=== PATIENT | male | born 1990 | race Two or more races ===

== ENCOUNTER 2022-04-28 07:51 | Inpatient (IN) | payer MEDICAID, OTHER ==
[~2022-04-28] VITALS: Ht 182.9 cm; Wt 80.8 kg
[2022-04-28] MEDS ORDERED: SODIUM CHLORIDE 0.9% 1,000 ML IV ONE (08:00)
[2022-04-28] MEDS ORDERED: LORazepam 2MG/ML-1ML VIAL IV ONE ×2 (08:15→09:00)
[2022-04-28 08:35] LABS: Basophils # (auto) 0.1 10 ^3/uL (0-0.2); Basophils % (auto) 0.4 % (0.0-2.0); Eosinophils # (auto) 0.1 10 ^3/uL (0-0.8); Eosinophils % (auto) 0.6 % (0.0-7.0); Hematocrit 47.3 % (41.0-53.0); Hemoglobin 15.9 g/dL (13.5-17.5); Lymphocytes # (auto) 1.4 10 ^3/uL (0.4-5.4); Lymphocytes % (auto) 10.4 % (10.0-50.0); Mean Corpuscular Hemoglobin 29.1 pg (28.0-32.0); Mean Corpuscular Hgb Conc. 33.6 g/dL (32.0-36.0); Mean Corpuscular Volume 86.6 fL (80.0-100.0); Monocytes # (auto) 0.5 10 ^3/uL (0-1.3); Monocytes % (auto) 3.7 % (0.0-12.0); Neutrophils # (auto) 11.6 10 ^3/uL (1.6-8.6); Neutrophils % (auto) 84.9 % (37.0-80.0); Nucleated Red Blood Cells % 0.2 %; Red Blood Cells 5.47 10^6/uL (4.5-5.90); Red Cell Distribution Width 13.5 % (11.8-14.3); White Blood Cell 13.6 10^3/uL (4.4-10.8)
[2022-04-28 09:06] LABS: Albumin 4.1 g/dL (3.4-5.0); Calcium 9.5 mg/dL (8.5-10.1); Potassium 3.3 mmol/L (3.5-5.1)
[2022-04-28 09:09] LABS: BUN/Creatinine Ratio 13.2; Total Protein 7.7 g/dL (6.4-8.2)
[2022-04-28] MEDS ORDERED: IOHEXOL 350 MG/ML 100ML IJ ONE (10:55)
[2022-04-28 11:11] LABS: Urine Bacteria NONE SEEN /hpf (None Seen); Urine Blood TRACE /uL (Negative); Urine Specific Gravity 1.014 (1.001-1.035); Urine WBC 6 /hpf (0 - 3)
[2022-04-28] MEDS ORDERED: ETOMIDATE (2MG/ML) 20ML VIAL IV ONE (11:45)
[2022-04-28] MEDS ORDERED: MORPHINE SULFATE INJ 2 MG/ml SYRG IV ONE (12:00)
[2022-04-28] MEDS ORDERED: ONDANSETRON HCL 4 MG/2 ML VIAL IV PRN (13:15)
[2022-04-28] MEDS ORDERED: MORPHINE SULFATE INJ 2 MG/ml SYRG IV PRN (13:15)
[2022-04-28] MEDS ORDERED: DOCUSATE SOD 100 MG CAP PO PRN (13:15)
[2022-04-28] MEDS ORDERED: MORPHINE SULFATE 4 MG/ML SYR/VIAL IV ONE (13:45)
[2022-04-28] MEDS: SODIUM CHLORIDE 0.9% 1,000 ML IV SCH ×2 (13:56→21:53)
[2022-04-28] MEDS: LORazepam 2MG/ML-1ML VIAL IV PRN (17:33)
[2022-04-28] MEDS ORDERED: NICOTINE 21MG/24 HR TOPICAL PATCH TD ONE (21:15)
[2022-04-28 23:30] VITALS: BP 155/97
[2022-04-29 05:00] VITALS: BP 115/73
[2022-04-29 05:27] LABS: Basophils # (auto) 0 10 ^3/uL (0-0.2); Basophils % (auto) 0.3 % (0.0-2.0); Eosinophils # (auto) 0.1 10 ^3/uL (0-0.8); Eosinophils % (auto) 0.5 % (0.0-7.0); Hematocrit 39.6 % (41.0-53.0); Hemoglobin 13.7 g/dL (13.5-17.5); Lymphocytes # (auto) 1.6 10 ^3/uL (0.4-5.4); Lymphocytes % (auto) 15.4 % (10.0-50.0); Mean Corpuscular Hemoglobin 29.5 pg (28.0-32.0); Mean Corpuscular Hgb Conc. 34.6 g/dL (32.0-36.0); Mean Corpuscular Volume 85.5 fL (80.0-100.0); Monocytes # (auto) 0.8 10 ^3/uL (0-1.3); Monocytes % (auto) 7.6 % (0.0-12.0); Neutrophils # (auto) 7.9 10 ^3/uL (1.6-8.6); Neutrophils % (auto) 76.2 % (37.0-80.0); Red Blood Cells 4.63 10^6/uL (4.5-5.90); Red Cell Distribution Width 13.4 % (11.8-14.3); White Blood Cell 10.4 10^3/uL (4.4-10.8)
[2022-04-29 05:40] LABS: Albumin 3.3 g/dL (3.4-5.0); Calcium 8.4 mg/dL (8.5-10.1); Potassium 3.1 mmol/L (3.5-5.1)
[2022-04-29 05:45] LABS: Bilirubin, Total 0.6 mg/dL (0.2-1.0); Total Protein 6.4 g/dL (6.4-8.2)
[2022-04-29] MEDS: SODIUM CHLORIDE 0.9% 1,000 ML IV SCH (06:13)
[2022-04-29 09:20] VITALS: BP 134/77
[2022-04-29] MEDS: ENOXAPARIN SOD 40 MG/0.4 ML SYRINGE SC SCH (09:47)
[2022-04-29] MEDS ORDERED: PANTOPRAZOLE 40 MG/10 ML VIAL INJ IV SCH (10:00)
[2022-04-29 13:00] VITALS: BP 146/91
[2022-04-29] MEDS: NICOTINE 21MG/24 HR TOPICAL PATCH TD SCH (14:50)
[2022-04-29] MEDS: LORazepam 2MG/ML-1ML VIAL IV PRN (15:32)
[2022-04-29 17:00] VITALS: BP 146/94
[2022-04-29 22:00] VITALS: BP 112/71
[2022-04-29] MEDS ORDERED: MELATONIN 5 MG TAB PO ONE (22:15)
[2022-04-29] MEDS: levETIRAcetam 500 MG TAB PO SCH (22:19)
[2022-04-30 05:00] VITALS: BP 138/68
[2022-04-30 09:07] VITALS: BP 132/81
[2022-04-30] MEDS ORDERED: LEVE500T32 PO (09:18)
[2022-04-30] MEDS: levETIRAcetam 500 MG TAB PO SCH (09:41)
[2022-04-30] MEDS: NICOTINE 21MG/24 HR TOPICAL PATCH TD SCH (09:42)
[2022-04-30] MEDS: ENOXAPARIN SOD 40 MG/0.4 ML SYRINGE SC SCH (09:42)
[2022-04-30 10:33] VITALS: BP 132/81
== END 2022-04-30 11:08 | disposition home or self-care (01) | DRG 53 ==
LOC: EDBD 07:51 → ER 07:51 → OVERFLOW 13:08 → CENTRAL 21:30
PROVIDERS: ADMIT Nurse Practitioner Family; ATTEND Student in an Organized Health Care Education/Training Program
PROC: 0RSJXZZ Reposition Right Shoulder Joint, External Approach (ICD-10-PCS; principal; 2022-04-28)
DX: G40.201 Localization-related (focal) (partial) symptomatic epilepsy and epileptic syndromes with complex partial seizures, not intractable, with status epilepticus (principal); G40.401 Other generalized epilepsy and epileptic syndromes, not intractable, with status epilepticus; S43.014A Anterior dislocation of right humerus, initial encounter; E87.6 Hypokalemia; D72.829 Elevated white blood cell count, unspecified; F41.1 Generalized anxiety disorder; X58.XXXA Exposure to other specified factors, initial encounter; Z20.822 Contact with and (suspected) exposure to COVID-19; M19.90 Unspecified osteoarthritis, unspecified site; Z79.899 Other long term (current) drug therapy; Z82.49 Family history of ischemic heart disease and other diseases of the circulatory system; Z83.3 Family history of diabetes mellitus; Y93.89 Activity, other specified; Y92.89 Other specified places as the place of occurrence of the external cause; Y99.8 Other external cause status
CPT/HCPCS: 23650; 36415; 70450; 73020; 73030; 73200; 80053; 81001; 85025; 87426; 93005; 96361; 96374; 96375; 96376; 97163; 99152; C9113; G0378; J2405; J7060

== ENCOUNTER 2022-06-23 18:01 | Inpatient (IN) | payer MEDICAID ==
[~2022-06-23] VITALS: Ht 180.3 cm; Wt 81.0 kg
[~2022-06-23 18:01] MED LIST: LEVE500T32 PO
[2022-06-23] MEDS ORDERED: LORazepam 2MG/ML-1ML VIAL ONE ×2 (18:21→22:03)
[2022-06-23] MEDS ORDERED: SODIUM CHLORIDE 0.9% 1,000 ML IV ONE ×3 (18:30→22:00)
[2022-06-23] MEDS ORDERED: LORazepam 2MG/ML-1ML VIAL IV ONE ×2 (18:30→22:15)
[2022-06-23 19:27] LABS: Mean Corpuscular Hemoglobin 29.2 pg (28.0-32.0); Mean Corpuscular Hgb Conc. 30.2 g/dL (32.0-36.0); Mean Corpuscular Volume 96.8 fL (80.0-100.0); Red Blood Cells 5.81 10^6/uL (4.5-5.90); Red Cell Distribution Width 12.7 % (11.8-14.3)
[2022-06-23 19:37] LABS: Hematocrit 56.2 % (41.0-53.0)
[2022-06-23 19:39] LABS: White Blood Cell 36.9 10^3/uL (4.4-10.8)
[2022-06-23 19:40] LABS: Basophils % (manual) 0 (0.0-2.0); Blast Cells 0; Eosinophils % (manual) 0 (0-7); Metamyelocytes % 0; Myelocytes % 0; Promyelocytes % 0; Reactive Lymphocytes 0
[2022-06-23 19:50] LABS: Albumin 4.4 g/dL (3.4-5.0); Calcium 11.1 mg/dL (8.5-10.1); Potassium 4.5 mmol/L (3.5-5.1)
[2022-06-23 19:53] LABS: BUN/Creatinine Ratio 6.3
[2022-06-23 19:55] LABS: Bilirubin, Total 0.3 mg/dL (0.2-1.0); Total Protein 8.3 g/dL (6.4-8.2)
[2022-06-23 19:57] LABS: Lactic Acid w/Reflex 27.2 mmol/L (0.4-2.0)
[2022-06-23] MEDS ORDERED: PIPERACILLIN-TAZOB 3.375GM 100 ML IV ONE (20:00)
[2022-06-23 20:11] LABS: Magnesium 4.6 mg/dL (1.6-2.6)
[2022-06-23 20:24] LABS: Band Neutrophils % (manual) 12; Lymphocytes % (manual) 38 (10.0-50.0); Monocytes % (manual) 5 (0-12)
[2022-06-23] MEDS ORDERED: SODIUM BICARBONATE 8.4 % INJ 50ML VIAL IV ONE ×2 (21:15→21:45)
[2022-06-23] MEDS ORDERED: InsuLIN R (HUMAN) 100 UNITS in SODIUM CHL 0.9% 99 ML IV SCH (21:15)
[2022-06-23] MEDS ORDERED: NALOXONE HCL 0.4 MG/ML VIAL ONE ×2 (21:37→21:49)
[2022-06-23] MEDS ORDERED: SODIUM BICARBONATE 8.4% INJ 50ML SYRINGE ONE (21:40)
[2022-06-23] MEDS ORDERED: InsuLIN REG 1unit/0.01ml Soln (100units/ml) ONE ×2 (21:41→21:52)
[2022-06-23] MEDS ORDERED: ETOMIDATE (2MG/ML) 20ML VIAL IV ONE ×2 (21:44→22:00)
[2022-06-23] MEDS ORDERED: MIDAZOLAM DRIP 50 mg/50mL 50 ML IV ONE (21:44)
[2022-06-23] MEDS ORDERED: SUCCINYLCHOLINE CHLORIDE 20 MG/ML 10ML VIAL IV ONE ×2 (21:45→22:15)
[2022-06-23] MEDS ORDERED: InsuLIN REG 1unit/0.01ml Soln (100units/ml) IV ONE (21:45)
[2022-06-23] MEDS ORDERED: NALOXONE HCL 0.4 MG/ML VIAL IV ONE (22:00)
[2022-06-23 22:10] VITALS: BP 165/97
[2022-06-23] MEDS: MIDAZOLAM DRIP 50 mg/50mL 50 ML IV SCH (22:15)
[2022-06-23] MEDS: ACCU-CHEK COMFORT CURVE STRIP VI SCH (22:30)
[2022-06-23] MEDS: PROPOFOL 100 ML IV SCH (22:44)
[2022-06-23 22:56] LABS: INR 1.24 (0.9-1.15)
[2022-06-23] MEDS: SODIUM CHLORIDE 0.9% 1,000 ML IV SCH (23:15)
[2022-06-23 23:44] LABS: Hematocrit 49.5 % (41.0-53.0); Hemoglobin 16.7 g/dL (13.5-17.5); Mean Corpuscular Hemoglobin 29.3 pg (28.0-32.0); Mean Corpuscular Hgb Conc. 33.8 g/dL (32.0-36.0); Mean Corpuscular Volume 86.5 fL (80.0-100.0); Red Blood Cells 5.72 10^6/uL (4.5-5.90); Red Cell Distribution Width 12.2 % (11.8-14.3); White Blood Cell 27.4 10^3/uL (4.4-10.8)
[2022-06-23 23:45] LABS: Partial Thromboplastin Time 80.7 sec (24.6-33.4)
[2022-06-23 23:47] LABS: Lactic Acid w/Reflex 4.6 mmol/L (0.4-2.0)
[2022-06-23 23:50] VITALS: BP 128/88
[2022-06-23 23:52] LABS: Amphetamine Screen, Urine NEGATIVE (NEGATIVE); Barbiturate Scree,Urine NEGATIVE (NEGATIVE); Benzodiazephine Screen, Urine POSITIVE (NEGATIVE); Cannabinoid Screen, Urine POSITIVE (NEGATIVE); Cocaine Screen, Urine NEGATIVE (NEGATIVE); Opiate Scree,Urine NEGATIVE (NEGATIVE); Phencyclidine Screen, Urine NEGATIVE (NEGATIVE)
[2022-06-24] VITALS (12 sets, daily range): BP systolic 104–130; BP diastolic 61–88
[2022-06-24 00:01] LABS: Alcohol, Urine < 3.0 mg/dL (0-10)
[2022-06-24 00:07] LABS: Urine Bacteria NONE SEEN /hpf (None Seen); Urine Blood 1+ /uL (Negative); Urine Specific Gravity 1.008 (1.001-1.035); Urine WBC 1 /hpf (0 - 3)
[2022-06-24 00:12] LABS: Basophils % (manual) 0 (0.0-2.0); Blast Cells 0; Eosinophils % (manual) 0 (0-7); Metamyelocytes % 0; Myelocytes % 0; Promyelocytes % 0; Reactive Lymphocytes 0
[2022-06-24] MEDS ORDERED: NOREPINEPHRINE 8 MG/250ML KIT 250 ML IV ONE (00:18)
[2022-06-24 00:22] LABS: Albumin 3.6 g/dL (3.4-5.0); BUN/Creatinine Ratio 9.1; Calcium 8.1 mg/dL (8.5-10.1); Magnesium 3.4 mg/dL (1.6-2.6); Potassium 3.8 mmol/L (3.5-5.1)
[2022-06-24 00:24] LABS: Bilirubin, Total 0.4 mg/dL (0.2-1.0); Phosphorus 2.9 mg/dL (2.5-4.90); Total Protein 6.7 g/dL (6.4-8.2)
[2022-06-24] MEDS ORDERED: DEXTROSE (50%) 50ML SYRG IV ONE (00:45)
[2022-06-24] MEDS ORDERED: NITROGLYCERIN 0.4 MG SL TAB SL PRN (00:45)
[2022-06-24] MEDS ORDERED: ACETAMINOPHEN 650 MG RECT SUPP PR PRN (00:45)
[2022-06-24] MEDS: SODIUM CHLORIDE 0.9% 1,000 ML IV SCH (00:45)
[2022-06-24] MEDS ORDERED: MORPHINE SULFATE INJ 2 MG/ml SYRG IV PRN (00:45)
[2022-06-24 01:16] LABS: Monocytes % (manual) 6 (0-12)
[2022-06-24 01:17] LABS: Band Neutrophils % (manual) 13; Lymphocytes % (manual) 7 (10.0-50.0)
[2022-06-24] MEDS: ACCU-CHEK COMFORT CURVE STRIP VI SCH ×6 (01:40→18:06)
[2022-06-24] MEDS ORDERED: DEXTROSE (50%) 50ML SYRG IV PRN (01:45)
[2022-06-24] MEDS: InsuLIN REG 1unit/0.01ml Soln (100units/ml) SC SCH ×3 (06:00→18:00)
[2022-06-24 06:04] LABS: Basophils # (auto) 0.1 10 ^3/uL (0-0.2); Basophils % (auto) 0.3 % (0.0-2.0); Eosinophils # (auto) 0 10 ^3/uL (0-0.8); Hematocrit 40.9 % (41.0-53.0); Hemoglobin 14.3 g/dL (13.5-17.5); Lymphocytes # (auto) 0.7 10 ^3/uL (0.4-5.4); Lymphocytes % (auto) 3.4 % (10.0-50.0); Mean Corpuscular Hemoglobin 29.4 pg (28.0-32.0); Mean Corpuscular Hgb Conc. 35.1 g/dL (32.0-36.0); Mean Corpuscular Volume 83.9 fL (80.0-100.0); Monocytes # (auto) 1.2 10 ^3/uL (0-1.3); Monocytes % (auto) 6.2 % (0.0-12.0); Neutrophils # (auto) 17.7 10 ^3/uL (1.6-8.6); Neutrophils % (auto) 90.1 % (37.0-80.0); Red Blood Cells 4.87 10^6/uL (4.5-5.90); Red Cell Distribution Width 12.2 % (11.8-14.3); White Blood Cell 19.6 10^3/uL (4.4-10.8)
[2022-06-24 06:13] LABS: Albumin 3.2 g/dL (3.4-5.0); BUN/Creatinine Ratio 11.1; Calcium 7.9 mg/dL (8.5-10.1); Potassium 3.5 mmol/L (3.5-5.1)
[2022-06-24 06:16] LABS: Bilirubin, Total 0.5 mg/dL (0.2-1.0); Total Protein 6.2 g/dL (6.4-8.2)
[2022-06-24] MEDS: MIDAZOLAM DRIP 50 mg/50mL 50 ML IV SCH ×5 (07:31→22:08)
[2022-06-24 08:21] LABS: Magnesium 2.8 mg/dL (1.6-2.6); Phosphorus 2.9 mg/dL (2.5-4.90)
[2022-06-24] MEDS: PIPERACILLIN-TAZOB 3.375GM 100 ML IV SCH ×3 (09:40→22:08)
[2022-06-24] MEDS: ENOXAPARIN SOD 40 MG/0.4 ML SYRINGE SC SCH (10:38)
[2022-06-24] MEDS: PANTOPRAZOLE 40 MG/10 ML VIAL INJ IV SCH (10:38)
[2022-06-24] MEDS ORDERED: LORazepam 2MG/ML-1ML VIAL IV PRN (11:00)
[2022-06-24] MEDS: NOREPINEPHRINE 8 MG/250ML KIT 250 ML IV SCH (11:14)
[2022-06-24] MEDS: PROPOFOL 100 ML IV SCH ×2 (15:08→22:07)
[2022-06-25] VITALS (40 sets, daily range): BP systolic 110–145; BP diastolic 69–102
[2022-06-25] MEDS: ACCU-CHEK COMFORT CURVE STRIP VI SCH ×4 (00:15→18:00)
[2022-06-25] MEDS: NOREPINEPHRINE 8 MG/250ML KIT 250 ML IV SCH (00:30)
[2022-06-25] MEDS: PROPOFOL 100 ML IV SCH ×5 (02:20→21:20)
[2022-06-25] MEDS: MIDAZOLAM DRIP 50 mg/50mL 50 ML IV SCH ×6 (02:31→22:03)
[2022-06-25] MEDS: PIPERACILLIN-TAZOB 3.375GM 100 ML IV SCH ×3 (05:56→22:42)
[2022-06-25] MEDS: InsuLIN REG 1unit/0.01ml Soln (100units/ml) SC SCH ×4 (06:00→18:00)
[2022-06-25 07:56] LABS: Basophils # (auto) 0 10 ^3/uL (0-0.2); Basophils % (auto) 0.3 % (0.0-2.0); Eosinophils # (auto) 0.1 10 ^3/uL (0-0.8); Eosinophils % (auto) 0.5 % (0.0-7.0); Hematocrit 39.3 % (41.0-53.0); Hemoglobin 13.6 g/dL (13.5-17.5); Lymphocytes # (auto) 1.5 10 ^3/uL (0.4-5.4); Lymphocytes % (auto) 10.6 % (10.0-50.0); Mean Corpuscular Hemoglobin 29.1 pg (28.0-32.0); Mean Corpuscular Hgb Conc. 34.7 g/dL (32.0-36.0); Mean Corpuscular Volume 83.8 fL (80.0-100.0); Monocytes # (auto) 0.8 10 ^3/uL (0-1.3); Monocytes % (auto) 5.8 % (0.0-12.0); Neutrophils # (auto) 11.7 10 ^3/uL (1.6-8.6); Neutrophils % (auto) 82.8 % (37.0-80.0); Red Blood Cells 4.68 10^6/uL (4.5-5.90); Red Cell Distribution Width 12.4 % (11.8-14.3); White Blood Cell 14.1 10^3/uL (4.4-10.8)
[2022-06-25 08:08] LABS: Potassium 3.7 mmol/L (3.5-5.1)
[2022-06-25 08:15] LABS: Albumin 3.2 g/dL (3.4-5.0); BUN/Creatinine Ratio 7.2; Bilirubin, Total 0.6 mg/dL (0.2-1.0); Calcium 8.2 mg/dL (8.5-10.1); Total Protein 5.9 g/dL (6.4-8.2)
[2022-06-25] MEDS: PANTOPRAZOLE 40 MG/10 ML VIAL INJ IV SCH (11:17)
[2022-06-25] MEDS: ENOXAPARIN SOD 40 MG/0.4 ML SYRINGE SC SCH (11:17)
[2022-06-25] MEDS: fentaNYL Drip 2500mCg/250mlNS 250 ML IV SCH (21:09)
[2022-06-26] VITALS (102 sets, daily range): BP systolic 103–164; BP diastolic 60–103
[2022-06-26] MEDS: NOREPINEPHRINE 8 MG/250ML KIT 250 ML IV SCH (00:30)
[2022-06-26] MEDS: MIDAZOLAM DRIP 50 mg/50mL 50 ML IV SCH ×4 (02:14→14:02)
[2022-06-26] MEDS: PROPOFOL 100 ML IV SCH ×4 (02:16→22:51)
[2022-06-26] MEDS: PIPERACILLIN-TAZOB 3.375GM 100 ML IV SCH ×3 (05:30→21:59)
[2022-06-26] MEDS: InsuLIN REG 1unit/0.01ml Soln (100units/ml) SC SCH ×3 (06:00→12:00)
[2022-06-26] MEDS: ACCU-CHEK COMFORT CURVE STRIP VI SCH ×3 (06:00→12:00)
[2022-06-26] MEDS: PANTOPRAZOLE 40 MG/10 ML VIAL INJ IV SCH (09:41)
[2022-06-26] MEDS: ENOXAPARIN SOD 40 MG/0.4 ML SYRINGE SC SCH (09:42)
[2022-06-26 10:37] LABS: Basophils # (auto) 0 10 ^3/uL (0-0.2); Basophils % (auto) 0.4 % (0.0-2.0); Eosinophils # (auto) 0.2 10 ^3/uL (0-0.8); Eosinophils % (auto) 1.8 % (0.0-7.0); Hematocrit 37.5 % (41.0-53.0); Hemoglobin 12.7 g/dL (13.5-17.5); Lymphocytes # (auto) 1.3 10 ^3/uL (0.4-5.4); Lymphocytes % (auto) 12.4 % (10.0-50.0); Mean Corpuscular Hemoglobin 29.2 pg (28.0-32.0); Mean Corpuscular Hgb Conc. 33.9 g/dL (32.0-36.0); Mean Corpuscular Volume 86.1 fL (80.0-100.0); Monocytes # (auto) 0.7 10 ^3/uL (0-1.3); Monocytes % (auto) 6.5 % (0.0-12.0); Neutrophils # (auto) 8.2 10 ^3/uL (1.6-8.6); Neutrophils % (auto) 78.9 % (37.0-80.0); Nucleated Red Blood Cells % 0.1 %; Red Blood Cells 4.36 10^6/uL (4.5-5.90); Red Cell Distribution Width 12.5 % (11.8-14.3); White Blood Cell 10.4 10^3/uL (4.4-10.8)
[2022-06-26 10:41] LABS: Albumin 3.1 g/dL (3.4-5.0); Calcium 8.2 mg/dL (8.5-10.1)
[2022-06-26 10:44] LABS: Bilirubin, Total 0.5 mg/dL (0.2-1.0); Total Protein 5.8 g/dL (6.4-8.2)
[2022-06-26 10:48] LABS: BUN/Creatinine Ratio 7.2
[2022-06-26] MEDS: SODIUM CHLORIDE 0.9% 1,000 ML IV SCH (16:02)
[2022-06-26 18:00] LABS: BUN/Creatinine Ratio 7.2; Calcium 8.5 mg/dL (8.5-10.1); Potassium 4.1 mmol/L (3.5-5.1)
[2022-06-26 18:01] LABS: Uric Acid 7.7 mg/dL (3.5-7.2)
[2022-06-26 18:04] LABS: Phosphorus 6.8 mg/dL (2.5-4.90)
[2022-06-26] MEDS: fentaNYL Drip 2500mCg/250mlNS 250 ML IV SCH (19:30)
[2022-06-27] VITALS (96 sets, daily range): BP systolic 105–187; BP diastolic 53–117
[2022-06-27] MEDS: NOREPINEPHRINE 8 MG/250ML KIT 250 ML IV SCH ×2 (00:30→07:20)
[2022-06-27] MEDS: SODIUM CHLORIDE 0.9% 1,000 ML IV SCH ×4 (00:44→22:36)
[2022-06-27] MEDS: MIDAZOLAM DRIP 50 mg/50mL 50 ML IV SCH ×3 (03:00→07:20)
[2022-06-27 04:23] LABS: Calcium 8.3 mg/dL (8.5-10.1); Potassium 4.2 mmol/L (3.5-5.1)
[2022-06-27 04:25] LABS: BUN/Creatinine Ratio 7.7
[2022-06-27] MEDS: PROPOFOL 100 ML IV SCH (04:34)
[2022-06-27] MEDS: PIPERACILLIN-TAZOB 3.375GM 100 ML IV SCH ×3 (06:02→21:35)
[2022-06-27] MEDS: fentaNYL Drip 2500mCg/250mlNS 250 ML IV SCH ×2 (07:20→07:51)
[2022-06-27] MEDS: PANTOPRAZOLE 40 MG/10 ML VIAL INJ IV SCH (08:25)
[2022-06-27] MEDS: HEPARIN SODIUM (PORCINE) 5000 UNITS/ML 1ML VIAL SC SCH ×2 (08:33→22:00)
[2022-06-27] MEDS: hydrALAZINE HCL 20 MG/ML VL IV PRN ×3 (11:29→21:36)
[2022-06-27] MEDS ORDERED: VENL37.572 PO (14:19)
[2022-06-27] MEDS: VENLAFAXINE HCL 37.5mg XR cap PO SCH (16:39)
[2022-06-27] MEDS ORDERED: LORazepam 2MG/ML-1ML VIAL IV ONE (21:45)
[2022-06-28] VITALS (42 sets, daily range): BP systolic 133–160; BP diastolic 52–100
[2022-06-28 04:18] LABS: Calcium 8.3 mg/dL (8.5-10.1); Potassium 3.5 mmol/L (3.5-5.1)
[2022-06-28 04:21] LABS: Albumin 2.8 g/dL (3.4-5.0); BUN/Creatinine Ratio 8.4
[2022-06-28 04:24] LABS: Bilirubin, Total 0.8 mg/dL (0.2-1.0); Total Protein 5.8 g/dL (6.4-8.2)
[2022-06-28] MEDS: PIPERACILLIN-TAZOB 3.375GM 100 ML IV SCH ×2 (05:36→13:10)
[2022-06-28] MEDS: PANTOPRAZOLE 40 MG/10 ML VIAL INJ IV SCH (09:43)
[2022-06-28] MEDS: HEPARIN SODIUM (PORCINE) 5000 UNITS/ML 1ML VIAL SC SCH ×2 (09:44→22:00)
[2022-06-28] MEDS: VENLAFAXINE HCL 37.5mg XR cap PO SCH (09:44)
[2022-06-28] MEDS: CALCIUM ACETATE 667 MG CAP PO SCH ×2 (12:46→18:20)
[2022-06-28] MEDS: SODIUM CHLORIDE 0.9% 1,000 ML IV SCH ×2 (14:55→22:57)
[2022-06-28] MEDS: fentaNYL Drip 2500mCg/250mlNS 250 ML IV SCH (19:19)
[2022-06-29 03:34] LABS: INR 0.99 (0.9-1.15)
[2022-06-29 04:04] LABS: Albumin 2.8 g/dL (3.4-5.0); BUN/Creatinine Ratio 9.4; Calcium 8.8 mg/dL (8.5-10.1); Potassium 3.3 mmol/L (3.5-5.1)
[2022-06-29 04:06] LABS: Bilirubin, Total 0.5 mg/dL (0.2-1.0); Phosphorus 3.9 mg/dL (2.5-4.90); Total Protein 6.2 g/dL (6.4-8.2)
[2022-06-29 05:00] VITALS: BP 135/87
[2022-06-29] MEDS: VENLAFAXINE HCL 37.5mg XR cap PO SCH (06:35)
[2022-06-29] MEDS: CALCIUM ACETATE 667 MG CAP PO SCH (06:35)
[2022-06-29] MEDS: PANTOPRAZOLE 40 MG/10 ML VIAL INJ IV SCH (06:35)
[2022-06-29] MEDS: HEPARIN SODIUM (PORCINE) 5000 UNITS/ML 1ML VIAL SC SCH ×2 (06:36→21:06)
[2022-06-29] MEDS: ONDANSETRON HCL 4 MG/2 ML VIAL IV PRN ×2 (07:59→14:41)
[2022-06-29 09:00] VITALS: BP 155/85
[2022-06-29] MEDS ORDERED: POTASSIUM EFFERVESENT TAB 25 MEQ PO ONE (11:30)
[2022-06-29 13:00] VITALS: BP 150/83
[2022-06-29 17:00] VITALS: BP 142/76
[2022-06-29] MEDS: SODIUM CHLORIDE 0.9% 1,000 ML IV SCH (17:35)
[2022-06-29 22:20] VITALS: BP 143/81
[2022-06-30 05:22] VITALS: BP 138/91
[2022-06-30] MEDS: SODIUM CHLORIDE 0.9% 1,000 ML IV SCH ×2 (06:19→11:51)
[2022-06-30 07:16] LABS: Basophils # (auto) 0 10 ^3/uL (0-0.2); Basophils % (auto) 0.3 % (0.0-2.0); Eosinophils # (auto) 0.2 10 ^3/uL (0-0.8); Eosinophils % (auto) 2.6 % (0.0-7.0); Hematocrit 38.2 % (41.0-53.0); Lymphocytes # (auto) 1.6 10 ^3/uL (0.4-5.4); Lymphocytes % (auto) 16.9 % (10.0-50.0); Mean Corpuscular Hemoglobin 28.9 pg (28.0-32.0); Mean Corpuscular Hgb Conc. 34.2 g/dL (32.0-36.0); Mean Corpuscular Volume 84.6 fL (80.0-100.0); Monocytes # (auto) 1.1 10 ^3/uL (0-1.3); Monocytes % (auto) 11.4 % (0.0-12.0); Neutrophils # (auto) 6.5 10 ^3/uL (1.6-8.6); Neutrophils % (auto) 68.8 % (37.0-80.0); Nucleated Red Blood Cells % 0.1 %; Red Blood Cells 4.51 10^6/uL (4.5-5.90); White Blood Cell 9.4 10^3/uL (4.4-10.8)
[2022-06-30 08:38] LABS: Albumin 2.8 g/dL (3.4-5.0); BUN/Creatinine Ratio 10.4; Calcium 8.8 mg/dL (8.5-10.1); Potassium 3.7 mmol/L (3.5-5.1)
[2022-06-30 08:45] LABS: Bilirubin, Total 0.4 mg/dL (0.2-1.0); Phosphorus 3.9 mg/dL (2.5-4.90); Total Protein 5.7 g/dL (6.4-8.2)
[2022-06-30 09:00] VITALS: BP 150/96
[2022-06-30] MEDS: VENLAFAXINE HCL 37.5mg XR cap PO SCH (10:02)
[2022-06-30] MEDS: PANTOPRAZOLE 40 MG/10 ML VIAL INJ IV SCH (10:02)
[2022-06-30] MEDS: HEPARIN SODIUM (PORCINE) 5000 UNITS/ML 1ML VIAL SC SCH (10:03)
[2022-06-30] MEDS ORDERED: VENL37.572 PO (11:08)
[2022-06-30 13:00] VITALS: BP 153/93
[2022-06-30 17:00] VITALS: BP 153/93
[2022-06-30 17:11] VITALS: BP 153/93
== END 2022-06-30 18:15 | disposition home or self-care (01) | DRG 720 ==
LOC: ER 18:01 → EDBD 18:01 → TELE 06-24 00:47 → ICU WEST 06-25 16:17 → TELE-CENTR 06-28 20:48
PROVIDERS: ADMIT Internal Medicine; ATTEND Internal Medicine
PROC: 5A1945Z Respiratory Ventilation, 24-96 Consecutive Hours (ICD-10-PCS; principal; 2022-06-24)
PROC: 0BH18EZ Insertion of Endotracheal Airway into Trachea, Via Natural or Artificial Opening Endoscopic (ICD-10-PCS; 2022-06-24)
DX: A41.9 Sepsis, unspecified organism (principal); J96.01 Acute respiratory failure with hypoxia; N17.0 Acute kidney failure with tubular necrosis; E11.10 Type 2 diabetes mellitus with ketoacidosis without coma; M62.82 Rhabdomyolysis; E83.39 Other disorders of phosphorus metabolism; F33.1 Major depressive disorder, recurrent, moderate; Z20.822 Contact with and (suspected) exposure to COVID-19; F17.200 Nicotine dependence, unspecified, uncomplicated; G40.209 Localization-related (focal) (partial) symptomatic epilepsy and epileptic syndromes with complex partial seizures, not intractable, without status epilepticus; F12.10 Cannabis abuse, uncomplicated; Z79.899 Other long term (current) drug therapy; Z83.3 Family history of diabetes mellitus
CPT/HCPCS: 31500; 36415; 36600; 70450; 70551; 71045; 73030; 80048; 80053; 80307; 81001; 82010; 82550; 82805; 82962; 83036; 83605; 83735; 84100; 84484; 84550; 85007; 85025; 85027; 85610; 85730; 86256; 86592; 86703; 86803; 87040; 87070; 87081; 87205; 87426; 87804; 92610; 93005; 94002; 94003; 94640; 95819; 96365; 96366; 96367; 96375; 99291; 99292; C9113; G0378; J0330; J1815; J2250; J2405; J2543; J2704; J7060

== ENCOUNTER 2023-02-05 22:33 | Emergency (ER) | payer MEDICAID ==
[~2023-02-05] VITALS: Ht 190.5 cm; Wt 136.3 kg
[~2023-02-05 22:33] MED LIST changes: -LEVE500T32 PO; +LEVE500T40 PO; +VENL37.572 PO
[2023-02-05] MEDS ORDERED: ONDANSETRON HCL 4 MG/2 ML VIAL IV ONE (23:00)
[2023-02-05] MEDS ORDERED: MORPHINE SULFATE 4 MG/ML SYR/VIAL IV ONE (23:00)
[2023-02-05 23:09] LABS: Basophils # (auto) 0.1 10 ^3/uL (0-0.2); Basophils % (auto) 0.4 % (0.0-2.0); Eosinophils # (auto) 0 10 ^3/uL (0-0.8); Eosinophils % (auto) 0.3 % (0.0-7.0); Hematocrit 48.4 % (41.0-53.0); Hemoglobin 16.4 g/dL (13.5-17.5); Lymphocytes # (auto) 1.6 10 ^3/uL (0.4-5.4); Lymphocytes % (auto) 8.1 % (10.0-50.0); Mean Corpuscular Hemoglobin 28.8 pg (28.0-32.0); Mean Corpuscular Hgb Conc. 33.9 g/dL (32.0-36.0); Mean Corpuscular Volume 85.1 fL (80.0-100.0); Neutrophils # (auto) 16.7 10 ^3/uL (1.6-8.6); Neutrophils % (auto) 86.2 % (37.0-80.0); Nucleated Red Blood Cells % 0.1 %; Red Blood Cells 5.69 10^6/uL (4.5-5.90); Red Cell Distribution Width 13.1 % (11.8-14.3); White Blood Cell 19.3 10^3/uL (4.4-10.8)
[2023-02-05 23:27] LABS: Alanine Aminotransferase 106 U/L (7-40); Albumin 5.3 g/dL (3.2-4.8); Alkaline Phosphatase 86 U/L (46-116); Anion Gap 13.7 (5-15); Aspartate Aminotransferase 37 U/L (13-40); BUN/Creatinine Ratio 7.7 (10.0-20.0); Bilirubin, Total 0.6 mg/dL (0.2-1.0); Blood Urea Nitrogen 8 mg/dL (9-23); Calcium 10.1 mg/dL (8.7-10.4); Carbon Dioxide 16.3 mmol/L (20-30); Chloride 105 mmol/L (98-107); Glucose 179 mg/dL (74-106); Potassium 3.8 mmol/L (3.5-5.1); Sodium 135 mmol/L (136-145); Total Protein 8.5 g/dL (5.7-8.2)
[2023-02-05 23:58] VITALS: PULSE 91; RESP 20; TEMP 98.6; O2SAT 96
[2023-02-06] MEDS ORDERED: HYDROmorphone HCL 2 MG/ML VL/or syr IV ONE
[2023-02-06] MEDS ORDERED: levETIRAcetam 500 MG/5ML INJ IV ONE (00:18)
[2023-02-06 01:53] LABS: Urine Bacteria FEW /hpf (None Seen); Urine Blood 1+ /uL (Negative); Urine Clarity Clear (Clear); Urine Color Straw (Yellow); Urine Hyaline Cast FEW /lpf (0 - 2); Urine Protein, UAD 2+ (Negative); Urine Specific Gravity 1.018 (1.001-1.035); Urine Sperm PRESENT /hpf (None Seen); Urine Urobilinogen Normal (Negative); Urine WBC 1 /hpf (0 - 3); Urine pH 5.5 (5.0-8.0)
[2023-02-06 04:00] VITALS: BP 173/84; PULSE 92; RESP 20; O2SAT 95
== END 2023-02-06 05:03 | disposition home or self-care (01) ==
LOC: EDBD 22:33 → ER 22:33
DX: G40.909 Epilepsy, unspecified, not intractable, without status epilepticus (principal)
CPT/HCPCS: 36415; 70450; 71045; 80053; 81001; 84484; 85025; 93005; 96365; 96375; 99285; J1170; J1953; J2405; J7060

== ENCOUNTER → 2024-03-15 | Day surgery (SDC) | payer MEDICAID ==
[2024-03-14 14:02] LABS: Urine Bacteria None Seen /hpf (None Seen)
[2024-03-14 14:54] LABS: Basophils # (auto) 0.1 10 ^3/uL (0-0.2); Basophils % (auto) 0.9 % (0.0-2.0); Eosinophils # (auto) 0.4 10 ^3/uL (0-0.8); Eosinophils % (auto) 7.1 % (0.0-7.0); Hematocrit 46.2 % (41.0-53.0); Hemoglobin 15.8 g/dL (13.5-17.5); Lymphocytes # (auto) 2.2 10 ^3/uL (0.4-5.4); Lymphocytes % (auto) 36.2 % (10.0-50.0); Mean Corpuscular Hemoglobin 29.5 pg (28.0-32.0); Mean Corpuscular Hgb Conc. 34.3 g/dL (32.0-36.0); Mean Corpuscular Volume 86.2 fL (80.0-100.0); Monocytes # (auto) 0.5 10 ^3/uL (0-1.3); Neutrophils % (auto) 47.8 % (37.0-80.0); Nucleated Red Blood Cells % 0.1 %; Platelet Count (auto) 202 10^3/uL (140-450); Red Blood Cells 5.36 10^6/uL (4.5-5.90); Red Cell Distribution Width 13.3 % (11.8-14.3); White Blood Cell 6.2 10^3/uL (4.4-10.8)
[2024-03-14 15:10] LABS: Alanine Aminotransferase 13 U/L (7-40); Albumin 4.9 g/dL (3.2-4.8); Alkaline Phosphatase 71 U/L (46-116); Anion Gap 6 (5-15); Aspartate Aminotransferase < 8 U/L (13-40); BUN/Creatinine Ratio 11.5 (10.0-20.0); Blood Urea Nitrogen 10 mg/dL (9-23); Calcium 10.1 mg/dL (8.7-10.4); Carbon Dioxide 29 mmol/L (20-31); Chloride 105 mmol/L (98-107); Glucose 89 mg/dL (74-106); Potassium 4.4 mmol/L (3.5-5.1); Sodium 140 mmol/L (136-145)
[2024-03-14 15:11] LABS: Bilirubin, Total 0.5 mg/dL (0.2-1.0); Total Protein 7.6 g/dL (5.7-8.2)
[2024-03-14 15:19] LABS: Urine Blood TRACE /uL (Negative); Urine Clarity Clear (Clear); Urine Color Light-Yellow (Yellow); Urine Mucus FEW (None Seen); Urine Protein, UAD Negative (Negative); Urine Specific Gravity 1.023 (1.001-1.035); Urine Urobilinogen Normal (Negative); Urine WBC 1 /hpf (0 - 3)
[2024-03-14 15:27] LABS: INR 1.01 (0.9-1.15); Partial Thromboplastin Time 28.6 SEC (24.5-34.5); Prothrombin Time 10.7 sec (9.3-11.8)
[~2024-03-15] VITALS: Ht 188 cm; Wt 77.1 kg
[~2024-03-15] MED LIST changes: +DexAMETHasone SOD PHOS 10MG/1ML VIAL INJ ONE; +MEPERIDINE HCL (25 MG/ML) 1ML VIAL ONE; +MIDAZOLAM HCL 2MG/2ML 2ml VIAL (1mg/ml) ONE; +PROPOFOL 10 MG/ML 20 ML IV ONE; +fentaNYL CITRATE 100 MCG/2 ML VL ONE
[2024-03-15 12:22] VITALS: TEMP 98.9; O2SAT 96
[2024-03-15 12:42] VITALS: BP 119/72; PULSE 75; RESP 12; O2SAT 97
== END | disposition home or self-care (01) ==
LOC: GI 09:02
PROVIDERS: ATTEND Internal Medicine Gastroenterology
DX: K92.1 Melena (principal); K92.2 Gastrointestinal hemorrhage, unspecified; K64.8 Other hemorrhoids; K31.89 Other diseases of stomach and duodenum; I10 Essential (primary) hypertension; F17.210 Nicotine dependence, cigarettes, uncomplicated; Z79.899 Other long term (current) drug therapy; Z83.3 Family history of diabetes mellitus
CPT/HCPCS: 36415; 45378; 80053; 81001; 85025; 85610; 85730; J1100; J2175; J2250; J2704; J3010; J7030